=== PATIENT | female | born 1970 | race Caucasian/White ===

== ENCOUNTER 2017-10-04 12:24 | Emergency (ER) | payer OTHER ==
--- NOTE | 2017-10-04 13:39 | RAD ---
HISTORY: Cough COMPARISONS: October 29, 2003 VIEWS: 4: Frontal dual-energy and lateral views of the chest. FINDINGS: CARDIOMEDIASTINAL SILHOUETTE: The cardiomediastinal silhouette is normal. MALGORZATA: The malgorzata are normal. PLEURA: The costophrenic angles are sharp. No pleural abnormalities are noted. LUNG PARENCHYMA: The lungs are clear. ABDOMEN: The upper abdomen is clear. There is no subphrenic gas. BONES AND SOFT TISSUES: No bone or soft tissue abnormalities are noted. OTHER: None. IMPRESSION: NO ACTIVE CARDIOPULMONARY DISEASE.
[2017-10-04 13:54] VITALS: BP 114/74
--- NOTE | 2017-10-04 14:01 | UC ---
Candido Turner Nikita, scribed for [facility] MD on 10/04/17 at 1310 . General HPI - HPI Summary HPI Summary: In Room Note: This patient is a 47 year old F presenting to [facility] with a chief complaint of cold since Nov 2. The CC is described as constant but worsened since onset, aching, and throbbing. The patient rates the pain 7/10 in severity. Symptoms aggravated by nothing. Symptoms alleviated by nothing. Patient reports frontal ARCE (past few days, worsened since onset), productive cough, fatigue, rhinorrhea , sore throat (has been better since onset), N/V (this morning for the first time), frequent urination, and decreased appetite. Patient denies TM symptoms and neck pain. Pt traveled for work and came back last night. Note: Vital signs stable. Afebrile. BP 126/60. Pulse ox 100. 7/10 respiratory discomfort. Visit Hx: hypothyroidism. Nurses Note: Cold symptoms for a few days, gotten worse, now has a frontal headache, a cough. She just can't get over it. - History of Current Complaint Chief Complaint: UCGeneralIllness Stated Complaint: RESP ISSUE Time Seen by Provider: 10/04/17 12:56 Hx Obtained From: Patient Hx Last Menstrual Period: none Onset/Duration: Sudden Onset, Lasting Weeks, Still Present, Worse Since Timing: Constant Onset Severity: Moderate Current Severity: Moderate Pain Intensity: 7 Pain Location at: frontal ARCE Pain Radiates to: aching and throbbing Aggravating: nothing Alleviating: nothing Associated Signs & Symptoms: Positive: Other - Patient reports frontal ARCE (past few days, worsened since onset), productive cough, fatigue, rhinorrhea, sore throat (has been better since onset), N/V (this morning for the first time), frequent urination, and decreased appetite. Patient denies TM symptoms, neck pain, and sinus tenderness. - Allergy/Home Medications Allergies/Adverse Reactions: Allergies Allergy/AdvReac Type Severity Reaction Status Date / Time Guaifenesin Allergy Palpitation Verified 10/04/17 12:43 s Home Medications: Home Medications Bupropion XL* [Wellbutrin XL *] 300 mg PO DAILY 10/04/17 [History Confirmed 10/10] Levothyroxine TAB* [Synthroid 75 MCG TAB*] 75 mg PO EVERY OTHER DAY 10/04/17 [ History Confirmed 10/04/17] Levothyroxine TAB* [Synthroid TAB*] 50 mcg PO EVERY OTHER DAY 10/04/17 [History Confirmed 10/04/17] PMH/Surg Hx/FS Hx/Imm Hx - Additional Past Medical History Additional PMH: rheumatoid arthritis, psoriasis Endocrine History: Hypothyroidism, Other Other Endocrine History: HLD Cardiovascular History: Other Other Cardiovascular History: No CAD, HTN Respiratory History: Pneumonia, Other Other Respiratory History: No meningitis Neurological History: Other Other Neurological History: No migraines - Surgical History Surgical History: Yes Surgery Procedure, Year, and Place: LT ELBOW NO METAL, HYSTERECTOMY 2010, left knee-2013 - Family History Known Family History: Negative: Cardiac Disease, Hypertension, Diabetes - Social History Alcohol Use: None Substance Use Type: None Smoking Status (MU): Never Smoked Tobacco Review of Systems Constitutional: Fatigue, Other - cold symptoms ENT: Other - rhinorrhea, sore throat; denies TM symptoms Respiratory: Cough - productive Gastrointestinal: Vomiting, Nausea, Other - decreased appetite Genitourinary: Frequency Musculoskeletal: Other: - denies neck pain Neurological: Headache - frontal All Other Systems Reviewed And Are Negative: Yes Physical Exam Triage Information Reviewed: Yes Appearance: Well-Appearing, No Pain Distress, Well-Nourished Vital Signs: Initial Vital Signs Temp 97.5 F 10/04/17 12:38 Pulse 62 10/04/17 12:38 Resp 17 10/04/17 12:38 BP 126/60 10/04/17 12:38 Pulse Ox 100 10/04/17 12:38 Vital Signs Reviewed: Yes Eyes: Positive: Conjunctiva Clear ENT: Positive: Hearing grossly normal, Pharynx normal, TMs normal, Other - Sinuses tenderness to percussion. Frontal sinus. Negative: Muffled voice Neck: Positive: Supple, No Lymphadenopathy, Other: - No cervical adenopathy. Respiratory: Positive: Chest non-tender, Other: - Scattered rhonchi and crackles at both lung bases Cardiovascular: Positive: RRR, No Murmur Abdomen Description: Positive: Nontender, No Organomegaly, Soft Bowel Sounds: Positive: Present Musculoskeletal: Positive: Strength Intact Neurological: Positive: Alert Psychological: Positive: Age Appropriate Behavior Skin: Negative: rashes Diagnostics - Radiology CXR Radiology Interpretation Completed By: Radiologist - NO ACTIVE CARDIOPULMONARY DISEASE. [facility] physician has reviewed this radiology report and agrees. Re-Evaluation - Re-Evaluation First Eval Re-Evaluation Time: 13:45 Comment: Pt feels nauseated Recheck vital signs and send her home with Amoxicillin, Zofran, and recommend Acetaminophen if they have Ibuprofen and diphenhydramine Benadryl. Course/Dx - Course Course Of Treatment: This patient is a 47 year old F presenting to [facility] with a chief complaint of cold since Nov 2. The CC is described as constant but worsened since onset, aching, and throbbing. The patient rates the pain 7/10 in severity. Symptoms aggravated by nothing. Symptoms alleviated by nothing. Patient reports frontal ARCE (past few days, worsened since onset), productive cough, fatigue, rhinorrhea, sore throat (has been better since onset), N/V ( this morning for the first time), frequent urination, and decreased appetite. Patient denies TM symptoms and neck pain. Patient is Urgent/Emergent. CXR was normal. Probable frontal sinusitis. Pt started on Amoxycillin. Rechecked pt at 1345. Pt feels nauseated Recheck vital signs and send her home with Amoxicillin , Zofran, and recommend Acetaminophen if they have Ibuprofen and diphenhydramine Benadryl. Pt will be discharged. Pt is agreeable with this plan. - Differential Dx - Multi-Symptom Differential Diagnoses: Other - PNA vs URI vs sinusitis Provider Diagnoses: Frontal/maxillary sinusitis Discharge - Discharge Plan Condition: Stable Disposition: HOME Prescriptions: Amoxicillin PO (*) [Amoxicillin 875 MG (*)] 875 mg PO BID #20 tab MDD 2 Ondansetron ODT TAB* [Zofran Odt TAB*] 4 mg PO Q6H #10 tab.odt Patient Education Materials: Sinusitis (ED), Viral Syndrome (ED) Referrals: Mona David MD [Primary Care Provider] - Additional Instructions: Thank you for helping us improve patient care by filling out the [employer] Survey. WE DISCUSSED: 1. You have been given amoxicillin for sinusitis. The congestion is related to your headache. 2. You also have a virus going to various parts of your body. 3. See information below. 4. To treat nausea: Zofran and over the counter Benadryl (diphenhydramine). 5. Bed rest today. 6. For discomfort: Ibuprofen 600 and acetaminophen 1000mg for pain up to THREE times a day for pain. 7. USEFUL WAYS TO FEEL BETTER WITHOUT MEDICATIONS: STAND UNDER SHOWER STREAM TO LOOSEN SECRETIONS. USE A VAPORIZOR. STAY AWAY FROM ANY SMOKE OR IRRITANTS. USE SALINE NASAL SPRAY TO KEEP FLOW OF MUCOUS FROM NOSTRILS AND SINUSES. CONSIDER USING NETI POT TO HELP WITH ALLERGIES AND CONGESTION IN THE NOSE. USE THIS THREE TIMES A WEEK. YOU CAN GET THIS AT [employer] IN [place] OR [employer]. DRINK LOTS OF WARM FLUIDS USEFUL HOME REMEDIES: WARM WATER GARGLES, WITH TSP OF SALT PER 8 OUNCES OF WATER, GARGLE FOR A FEW SECONDS AND SPIT OUT; GARGLE AND SPIT OUT; EVERY THREE HOURS. AND/OR: WARM WATER OR TEA, HONEY AND LEMON; 2-3 CUPS A DAY. FOR SORE THROAT: KEEP THROAT MOIST WITH LOZENGES; TEA AND HONEY. USE WARM WATER GARGLES 3-4 TIMES A DAY. FOLLOW UP: RE-CHECK IN 1O DAYS, NEEDED, IF YOU ARE NOT IMPROVING. RETURN HERE OR SEE YOUR PHYSICIAN. RE-CHECK SOONER IF INCREASED PAIN OR TEMPERATURE. PLEASE SEEK CARE AT THE EMERGENCY DEPARTMENT IF SYMPTOMS WORSEN OR IF NEW SYMPTOMS DEVELOP. ~FOLLOW UP WITH YOUR PRIMARY CARE PHYSICIAN. The documentation as recorded by the Candido hallman Nikita accurately reflects the service I personally performed and the decisions made by me, Koffi Patrick MD.
== END 2017-10-04 14:08 | disposition home or self-care (01) ==
LOC: UCEAST 12:24
DX: J32.1 Chronic frontal sinusitis (principal); J32.0 Chronic maxillary sinusitis; R05 Cough
CPT/HCPCS: 71020; 99212; G0463